=== PATIENT | female | born 1985 | race Caucasian/White ===

== ENCOUNTER 2017-10-13 10:19 | Emergency (ER) | payer MEDICARE, MEDICAID ==
[~2017-10-13] VITALS: Ht 170.2 cm; Wt 88.6 kg
[2017-10-13] MEDS ORDERED: KLONOPIN2 MG PO (10:27)
[2017-10-13] MEDS ORDERED: AMBIEN 10MG10 MG PO (10:28)
[2017-10-13 11:51] LABS: HEMATOCRIT 44.6 % (37.0-47.0); HEMOGLOBIN 14.9 g/dl (12.5-16.0); MEAN CELL VOLUME 86 fl (80.0-100.0); MEAN CORPUSCULAR HEMOGLOBIN 29 pg (27.0-31.0); MEAN CORPUSCULAR HGB CONC 33 g/dl (33.0-37.0); MEAN PLATELET VOLUME 10.1 fl (7.4-10.4); PLATELET COUNT 240 K/mm3 (130-400); REDCELL DISTRIBUTION WIDTH-CV 15.8 % (11.5-14.5)
[2017-10-13 12:07] LABS: ALBUMIN 4.4 gm/dL (3.5-5.0); BILIRUBIN,TOTAL 0.6 mg/dL (0.0-1.0); CALCIUM 10.6 mg/dL (8.4-10.2); CREATININE, serum 0.65 mg/dL (0.52-1.25); POTASSIUM 4.3 mmol/L (3.4-5.0); TOTAL PROTEIN 9.7 gm/dL (6.4-8.2)
[2017-10-13] MEDS ORDERED: ZOFRAN ODT4 MG PO (13:01)
[2017-10-13 13:24] VITALS: BP 120/86; PULSE 85; TEMP 98.1
[2017-10-13 14:10] LABS: ANISOCYTOSIS 1+; BAND 2 % (0-10); LYMPHOCYTE 22 % (20.0-51.0); NEUTROPHILS 73 % (42.0-75.2); PLATELET ESTIMATE NORMAL (NORMAL)
== END 2017-10-13 13:18 | disposition home or self-care (01) ==
LOC: COL.ER 10:19
PROVIDERS: Physician Assistant
DX: F19.939 Other psychoactive substance use, unspecified with withdrawal, unspecified (principal); F32.9 Major depressive disorder, single episode, unspecified; F41.9 Anxiety disorder, unspecified; F17.210 Nicotine dependence, cigarettes, uncomplicated
CPT/HCPCS: J2060; J2270; J2405; J2550; J7030

== ENCOUNTER → 2018-02-21 | Outpatient (CLI) | payer MEDICARE, MEDICAID ==
[~2018-02-21] MED LIST: AMBIEN 10MG10 MG PO; KLONOPIN2 MG PO; ZOFRAN ODT4 MG PO
== END ==
LOC: BHSO 10:38
DX: F43.10 Post-traumatic stress disorder, unspecified (principal)

== ENCOUNTER → 2018-03-21 | Outpatient (CLI) | payer MEDICARE, MEDICAID | LOC: BHSO 13:26 | DX: F43.10 Post-traumatic stress disorder, unspecified (principal) | CPT/HCPCS: G0463 ==

== ENCOUNTER 2019-07-13 10:31 | Emergency (ER) | payer MEDICARE, MEDICAID ==
[~2019-07-13] VITALS: Ht 170.2 cm; Wt 90.9 kg
[~2019-07-13 10:31] MED LIST changes: +ABILIFY5 MG PO; +ADIPEX-P37.5 MG PO; +ATARAX50 MG PO; +CEPHALEXIN500 M1 PO; +KLONOPIN 1MG1 MG PO; +PERCOCET 325 MG1 TAB PO; +PROZAC40 MG PO; +REMERON45 MG PO; +SINGULAIR 110 MG/TAB PO; +SONATA 10MG10 MG PO
[2019-07-13 10:36] VITALS: BP 124/76; PULSE 91; TEMP 98
[2019-07-13] MEDS ORDERED: AMBIEN 10MG10 MG PO (10:57)
[2019-07-13] MEDS ORDERED: NORCO 325 MG-51 TAB PO (12:39)
== END 2019-07-13 12:58 | disposition home or self-care (01) ==
LOC: COL.ER 10:31
DX: R07.81 Pleurodynia (principal); W06.XXXA Fall from bed, initial encounter